=== PATIENT | female | born 1960 | race Caucasian/White ===

== ENCOUNTER 2020-01-19 11:47 | Outpatient (CLI) | payer OTHER, SELFPAY ==
--- NOTE | 2020-01-19 11:55 | MM_ITS ---
WS: [id number] BILATERAL DIGITAL SCREENING MAMMOGRAPHY WITH CAD CLINICAL INFORMATION: SCREENING HISTORY: Screening mammogram. No current complaints. COMPARISON: TECHNIQUE: Bilateral CC and MLO views. FINDINGS: Scattered fibroglandular densities bilaterally. No suspicious focal mass, asymmetry, calcifications, or architectural distortion. No evidence of malignancy. MM/[id number] IMPRESSION: BI-RADS: 1-Negative FOLLOW UP: 1 Year Follow-up Recommend return to annual screening mammography.
== END 2020-01-19 11:48 | disposition home or self-care (01) ==
LOC: RADSHAW 11:54
PROVIDERS: PCP Family Medicine; Visit Provider Family Medicine
DX: Z12.31 Encounter for screening mammogram for malignant neoplasm of breast (principal)
CPT/HCPCS: 77067

== ENCOUNTER → 2020-03-30 08:21 | Outpatient (BNVA) | payer OTHER, SELFPAY | PROVIDERS: PCP Family Medicine; Visit Provider Psychiatry & Neurology Psychiatry | DX: F33.1 Major depressive disorder, recurrent, moderate (principal); F41.1 Generalized anxiety disorder; F43.12 Post-traumatic stress disorder, chronic | CPT/HCPCS: 99213 ==

== ENCOUNTER → 2020-06-01 10:58 | Outpatient (BNVA) | payer OTHER, SELFPAY | PROVIDERS: PCP Family Medicine; Visit Provider Surgery | DX: Z01.812 Encounter for preprocedural laboratory examination (principal); Z20.828 Contact with and (suspected) exposure to other viral communicable diseases | CPT/HCPCS: 87635 ==

== ENCOUNTER 2020-06-06 06:31 | Day surgery (SDC) | payer OTHER, SELFPAY ==
[2020-06-04 11:55] VITALS: BMI 44.9
[2020-06-06 06:56] VITALS: BP 142/94; PULSE 108; RESP 18; TEMP 36.8; O2SAT 97
[2020-06-06] MEDS: sodium chloride 0.9% 1,000 ML 30 ML IV (07:06)
--- NOTE | 2020-06-06 07:26 | W.PM.OPSUD ---
Surgery/Procedure H&P Update DATE OF PROCEDURE: June 06, 2020 DATE H&P PERFORMED: 05/24/20 H&P UPDATE INFORMATION: I have reviewed H&P completed within last 30 days, I have examined patient prior to procedure and No changes to prior documentation PREOP DIAGNOSIS: bleeding per rectum PRIMARY INDICATION FOR PROCEDURE: The same PLANNED PROCEDURE: Operation Date: 06/06/20 07:30 Proposed Procedures p EGD [id number] R10.9 K92.1(Not Applicable) - Devonte Pollard MD s Colonoscopy(Not Applicable) - Devonte Pollard MD
--- NOTE | 2020-06-06 07:32 | ANES.PREANE2 ---
Pre-Anesthetic Assessment Pre-Anesthetic Assessment: Height/Weight: Height 1.75 m Weight 137.892 kg Temp Pulse Resp BP Pulse Ox 98.2 F 108 H 18 142/94 97 06/06/20 06:56 06/06/20 06:56 06/06/20 06:56 06/06/20 06:56 06/06/20 06:56 Preop Diagnosis: bleeding per rectum Proposed Procedure: Operation Date: 06/06/20 07:30 Proposed Procedures p EGD [id number] 12649 R10.9 K92.1(Not Applicable) - Devonte Pollard MD s Colonoscopy(Not Applicable) - Devonte Pollard MD Was Beta Clarence taken within 24 hours: N/A Last intake: Intake Last Liquid Date 06/05/20 Last Liquid Time 22:00 Last Solid Date 06/04/20 Last Solid Time 22:00 Social: Social History: No alcohol and No tobacco Exam: Pre-Anes Outpt Exam: alert, oriented x 3, clear to auscultation bilaterally and regular rate & rhythm Airway: Submandibular: WNL Cervical ROM: WNL MP: 2 Dentition: Other Additional comments: OK dentition, missing #25 Pulmonary: Pulmonary: None reported CV/HEM: CV/HEM: None reported : : None reported Hepatic: Hepatic: None reported GI: GI: GERD Metabolic: Metabolic: Morbid obesity Musc/skel: Musc/skel: None reported Neuropsych: Neuropsych: Anxiety and Depression Comments: PTSD Anesthetic Plan: ASA status: 3 Anesthesia: MAC Risk of > 500 ml blood loss (7ml/kg in children): No Meds/Allergies Current Medications: Current Medications Generic Name Dose Route Start Last Admin Trade Name Freq PRN Reason Stop Dose Admin Sodium Chloride 1,000 mls @ 30 ml s/hr 06/06/20 06:45 06/06/20 07:06 Sodium Chloride 0.9% IV 30 mls/hr .Q24H SHANICE Administration PFSH Anesthesia PFSH: Family History Denies family history of Anesthesia complication Bleeding disorder Social History Smoking and tobacco status: former smoker Quit status (tobacco): has quit using tobacco Year quit tobacco: 2001 Second hand smoke exposure: Yes (Sometimes) Smoking risk assessment/counseling performed?: Yes Tobacco counseling given: counseling >3 minutes Data Anesthesia Cardiac Studies: No Data to Display
[2020-06-06 08:02] VITALS: BP 130/87; PULSE 103; RESP 18; TEMP 36.2; O2SAT 94
[2020-06-06 08:23] VITALS: BP 136/81; PULSE 91; RESP 18; O2SAT 96
--- NOTE | 2020-06-06 13:49 | ANE.PACU2 ---
Inpatient post-anesthesia follow up: Airway intact: Yes Vital signs: Temperature 97.1 F Pulse Rate 91 Respiratory Rate 18 Blood Pressure 136/81 Pulse Oximetry 96 Oxygen Delivery Me thod Room Air Oxygen Flow Rate Fraction of Inspir ed Oxygen Hydration adequate: Yes Nausea and vomiting: Yes Pain level: 1 Mental status: Baseline
[2020-06-07 09:17] LABS: H. Pylori / CLO Test Negative
== END 2020-06-06 08:47 | disposition home or self-care (01) ==
PROVIDERS: PCP Family Medicine; Visit Provider Surgery
PROC: 0DJ08ZZ Inspection of Upper Intestinal Tract, Via Natural or Artificial Opening Endoscopic (ICD-10-PCS; CPT 43235; principal; 2020-06-06 07:30)
PROC: 0DJD8ZZ Inspection of Lower Intestinal Tract, Via Natural or Artificial Opening Endoscopic (ICD-10-PCS; CPT 45378; 2020-06-06 07:30)
DX: K92.1 Melena (principal); K21.9 Gastro-esophageal reflux disease without esophagitis; K29.70 Gastritis, unspecified, without bleeding; E66.01 Morbid (severe) obesity due to excess calories; Z68.41 Body mass index [BMI] 40.0-44.9, adult; Z87.891 Personal history of nicotine dependence
CPT/HCPCS: 12345; 43239; 45378; 87077; J7030

== ENCOUNTER → 2020-08-08 08:16 | Outpatient (BNVA) | payer OTHER, SELFPAY | PROVIDERS: PCP Family Medicine; Visit Provider Psychiatry & Neurology Psychiatry | DX: F33.1 Major depressive disorder, recurrent, moderate (principal); F41.1 Generalized anxiety disorder; F43.12 Post-traumatic stress disorder, chronic | CPT/HCPCS: 99213 ==

== ENCOUNTER 2023-09-03 10:55 | Outpatient (CLI) | payer OTHER, SELFPAY ==
--- NOTE | 2023-09-03 11:00 | MM_ITS ---
WS: [id number] VIEWS: MLO and CC views both breasts. 3D digital tomosynthesis is also included in this exam. Comparison made with prior exam of 04/05/2007, 09/01/2008, 11/28/2011, 12/17/2011, 09/19/2013, 09/28/2014, 09/01/2016, 06/02/2018, Findings: There was no sign of mass, architectural distortion or suspicious calcification in either breast. The re are scattered areas of fibroglandular density Impression: MM/[id number] BI-RADS: 1-Negative FOLLOW-UP: 1 Year Follow-up This mammogram was also analyzed by the Computer Aided Detection System R2 Imag e [employer].
== END 2023-09-03 10:56 | disposition home or self-care (01) ==
LOC: MOBLMAM 11:02
PROVIDERS: PCP Family Medicine; Visit Provider Family Medicine
DX: Z12.31 Encounter for screening mammogram for malignant neoplasm of breast (principal)
CPT/HCPCS: 77063; 77067

== ENCOUNTER 2024-04-01 11:58 | Emergency (ER) | payer OTHER, SELFPAY ==
[2024-04-01 12:05] VITALS: BP 163/126; PULSE 93; RESP 18; TEMP 36.7; O2SAT 97; BMI 42.7
--- NOTE | 2024-04-01 12:22 | CT_ITS ---
WS: [id number] CTA HEAD AND NECK TECHNIQUE: Contrast enhanced CTA of the head and neck with coronal and sagittal reformatted images an d maximum intensity projection (MIP) images. NASCET criteria utilized. CLINICAL INFORMATION: L eye blindness, R eye extremely blurry COMPARISON: None. DLP: 1146.[address] scans at [facility] use at least one of these dose optimization techniques: automated e xposure control; mA and/or kV adjustment per patient size (includes targeted exams where dose is matc hed to clinical indication); or iterative reconstruction. FINDINGS: No evidence of intracranial hemorrhage or mass effect. Ventricular system and basal cistern s are patent. Tiny chronic lacunar infarct RIGHT basal ganglia. Mild small vessel changes. Mild paren chymal volume loss. Mastoid air cells are well aerated. Mild mucosal thickening in the ethmoid air ce lls. Mucosal thickening in the maxillary sinuses and sphenoid sinus. RIGHT: RIGHT common carotid artery is patent. Moderate calcified atheromatous plaque RIGHT carotid bu lb extending into the ICA. RIGHT ICA stenosis measures approximately 50%. RIGHT ICA is patent to the skull base. Retropharyngeal course to the RIGHT cervical ICA. LEFT: LEFT common carotid artery is patent. Minimal atheromatous plaque LEFT carotid bulb extending i nto the ICA. No significant LEFT ICA stenosis. LEFT ICA is patent to the skull base. LEFT dominant vertebral artery. Tiny hypoplastic RIGHT vertebral artery. Somewhat diminutive but rabago nt basilar artery. Anterior dominant circulation. Persistent LEFT STORE FACILITY TECHNICIAN. Normal vascularity to th e STORE FACILITY TECHNICIAN territory bilaterally. Both ICAs are patent at the skull base. Mild cavernous carotid calcification. Patent anterior communi cating artery. Hypoplastic LEFT A1 segment. Normal vascularity to the LEOBARDO territory. Normal vasculari ty to the MCA territories bilaterally. No evidence of proximal flow-limiting stenosis. CT/CT angio headneck* [id number] IMPRESSION: 1. Approximately 50% RIGHT proximal ICA stenosis with moderate calcified ather omatous plaque. 2. No significant LEFT ICA stenosis. 3. LEFT dominant vertebral artery. 4. Anterior dominant intracranial circulation. No evidence of proximal flow-li miting stenosis. 5. Somewhat diminutive but patent basilar artery. Persistent LEFT STORE FACILITY TECHNICIAN. 6. Tiny chronic appearing lacunar infarct RIGHT basal ganglia Notified SEMAJ Crawford at 04/01/2024 2:19 PM.
--- NOTE | 2024-04-01 12:22 | W.ED.EYEPROB ---
Documented by User: SEMAJ Crawford 04/01/24 15:20 HPI - Eye Problem General: Chief complaint: Eye Problems Stated complaint: Neuro Symptoms - sent by eye doctor Time Seen by Provider: 04/01/24 12:15 Source: patient and family Mode of arrival: ambulatory Limitations: no limitations History of Present Illness: Patient is a 64-year-old female who presents to ED today at the request of Dr. [facility] for evaluation of visual changes. Patient states she has essentially went almost blind in her left eye starting about 3 days ago. She does still have sense of light but states she cannot see things almost directly in front of her face. She states her right eye now is starting to get blurry. She did have a dilated eye exam at Dr. Mitchell's office prior to arriving here. They were concerned for a central retinal artery occlusion. She has no eye pain. MD chief complaint: vision change Onset (ago): day(s) Onset description: gradual Duration: constant Location: both eyes Eye Symptoms: decreased vision and blurry vision Place: home Mechanism: none Severity: severe Associated symptoms: Reports no associated symptoms; Denies fever(s), headache(s), nausea, neck pain or vomiting Treatments Prior to Arrival: other (Dilated eye examination) Related Data Home Medications Medication Instructions Recorded Confirmed calcium polycarbophil 625 mg 1,250 mg PO DAILY 08/23/19 04/01/24 tablet (Fiber-Lax) atorvastatin 10 mg tablet (Lipitor) 10 mg PO DAILY 10/11/19 04/01/24 hydrocodone 10 mg-acetaminophen 1 tab PO Q8H PRN Pain 12/02/23 04/01/24 325 mg tablet cetirizine 10 mg tablet 10 mg PO DAILY 04/01/24 04/01/24 escitalopram oxalate 20 mg tablet 20 mg PO DAILY 04/01/24 04/01/24 estradiol 2 mg tablet 2 mg PO DAILY 04/01/24 04/01/24 clpvqhed-pix-pkjrb ac 400 1 tab PO DAILY 04/01/24 04/01/24 mcg-calcium carb 500 mg-vit K1 20 mcg tablet (Women's 50 Plus Multivitamin) multivitamin with minerals 1 tab PO DAILY 04/01/24 04/01/24 (Hair,Skin and Nails tablet) omeprazole magnesium 20 mg 40 mg PO BID PRN Acid Reflux 04/01/24 04/01/24 tablet,delayed release (Prilosec OTC) phentermine 37.5 mg tablet 37.5 mg PO QAM 04/01/24 04/01/24 semaglutide 2 mg/dose (8 mg/3 mL) 2 mg SUBCUT Q7D 04/01/24 04/01/24 subcutaneous pen injector (Ozempic) Previous Rx's Medication Instructions Recorded galcanezumab-gnlm 120 mg/mL 240 mg (2 mL) SUBCUT ONCE #2 mL 02/26/24 subcutaneous syringe (Emgality) amlodipine 5 mg tablet 5 mg PO DAILY #60 tabs 04/01/24 clopidogrel 75 mg tablet (Plavix) 75 mg PO DAILY #30 tabs 04/01/24 Allergies Allergy/AdvReac Type Severity Reaction Status Date / Time aspirin Allergy Severe nausea Verified 02/26/24 10:43 hydrocodone Allergy Severe nausea Verified 02/26/24 10:43 tramadol Allergy Severe hives Verified 02/26/24 10:43 acetaminophen [From Tylenol] Allergy ADR-Nausea Verified 02/26/24 10:43 ibuprofen Allergy ADR-Nausea Verified 02/26/24 10:43 Review of Systems Const: Denies: fever(s) Eyes: Reports: change in vision, blurry vision and blind spots; Denies: eye discomfort, eye discharge, eye redness, dry eyes, floaters or seeing flashes Card: Denies: chest pain, palpitations, syncope or pre-syncope Resp: Denies: dyspnea GI: Denies: nausea or vomiting Musc: Denies: neck pain Neuro: Reports: difficulty walking (secondary to the visual loss); Denies: headache(s), numbness in extremities, weakness in extremities, sensory changes, lack of coordination, frequent falls, dizziness, vertigo, confusion, behavioral changes, Slurred speech present, difficulty communicating thoughts, seizure-like activity, involuntary movements or restless legs PFSH ED PFSH: Medical History GERD (gastroesophageal reflux disease) Gastritis Bleeding per rectum Family History Denies family history of Anesthesia complication Bleeding disorder Social History Smoking and tobacco/nicotine status: never used tobacco/nicotine Quit status (tobacco/nicotine): has quit using Year quit tobacco: 2001 Second hand smoke exposure: Yes (Sometimes) Physical Exam Const: COMMON NORMALS: no acute distress, patient oriented x3, no limitations and alert GENERAL APPEARANCE: cooperative NUTRITIONAL APPEARANCE: obese morbidly obese (BMI 42.8) ORIENTATION/CONSCIOUSNESS: Yes awake, Yes oriented to person, Yes oriented to place and Yes oriented to time HENMT: COMMON NORMALS: normocephalic, atraumatic and hearing grossly normal bilaterally HEAD & SCALP: normal to inspection, normocephalic and atraumatic FACE & SINUS: normal facial exam and face symmetric Eye: COMMON NORMALS: EOMs intact bilaterally and conjunctivae normal VISUAL ACUITY: Yes complete vision loss PERIORBITAL: periorbital findings normal EYELID: eyelids normal CONJUNCTIVA: Yes conjunctivae normal SCLERA: sclerae normal CORNEA: Yes corneas normal OTHER: examination limited as bilateral pupils are dilated from dilated eye exam just performed at Dr. Mitchell' office; she cannot count fingers with her L eye-she can with R; visual acuity performed at Dr. Mitchell' office Neck/C-Spine: COMMON NORMALS: full ROM, no lymphadenopathy, no meningeal signs, no JVD and No carotid bruits GENERAL: Yes normal visual inspection Resp: COMMON NORMALS: normal respiratory effort and clear to auscultation bilaterally AUSCULTATION: clear to auscultation bilaterally Cardio: COMMON NORMALS: no JVD, regular rate and regular rhythm RATE: regular rate RHYTHM: regular rhythm Neuro: SHIRLENE COMA SCALE: document GCS findings [place] coma scale eye opening: Spontaneous [place] coma scale verbal response: Orientated [place] coma scale motor response: Obey commands [place] coma scale total score: 15 COMMON NORMALS: patient oriented x3, moves all extremities, no focal motor deficits and no sensory deficits noted SENSORIUM/ORIENTATION: Yes alert, Yes oriented to person, Yes oriented to place and Yes oriented to time MENINGEAL SIGNS: Yes no meningeal signs CRANIAL NERVES: Yes CN normal except as noted and Yes CN II (optic) visual field findings: Yes central vision loss visual acuity findings: Yes complete vision loss Course Vital Signs: Vital signs: Vital Signs Temperature 98.1 F 04/01/24 12:05 Pulse Rate 114 H 04/01/24 15:38 Respiratory Rate 18 04/01/24 12:05 Blood Pressure 126/90 04/01/24 15:38 Pulse Oximetry 98 04/01/24 15:38 Oxygen Delivery Me thod Room Air 04/01/24 12:05 MDM - Eye Problem Medical Decision Making Discussed CTA findings with Dr. oDuglass here in the ED along with Dr. Gilbert Mitchell. Dr. Douglass recommending Plavix/aspirin. Dr. Mitchell had concerns for hypertensive retinopathy as well. Blood pressures here were elevated upon arrival 150s/160s/90s and she did have a spike of over 200s systolic. Upon re-examination she is 126/90. She does not routinely check her blood pressures at home and does not take blood pressure medications. Will start her on antihypertensive medication. Dr. Mitchell will follow-up with her next week for any concerns. She will otherwise follow-up with her primary care provider as well. Medical Records I reviewed the patient's medical records. Lab Data I reviewed the patient's lab results. 04/01/24 12:37 04/01/24 12:37 Radiology Impressions Head/Neck CTA 04/01/24 12:22 IMPRESSION: 1. Approximately 50% RIGHT proximal ICA stenosis with moderate calcified atheromatous plaque. 2. No significant LEFT ICA stenosis. 3. LEFT dominant vertebral artery. 4. Anterior dominant intracranial circulation. No evidence of proximal flow-limiting stenosis. 5. Somewhat diminutive but patent basilar artery. Persistent LEFT REEL SLITTER. 6. Tiny chronic appearing lacunar infarct RIGHT basal ganglia Notified SEMAJ Crawford at 04/01/2024 2:19 PM. Laboratory Results WBC 9.90 10^3/uL (3.29-11.43) 04/01/24 12:37 RBC 4.72 10^6/uL (3.85-5.65) 04/01/24 12:37 Hgb 14.40 g/dL (11.27-16.99) 04/01/24 12:37 Hct 44.0 % (36-47) 04/01/24 12:37 MCV 93.2 fl (85-98) 04/01/24 12:37 MCH 30.5 pg (27-33) 04/01/24 12:37 MCHC 32.7 g/dL (30-55) 04/01/24 12:37 RDW 12.5 % (12.1-15.1) 04/01/24 12:37 Plt Count 252 10^3/cmm (157-399) 04/01/24 12:37 MPV 10.8 fL (7.4-10.4) H 04/01/24 12:37 Neut % (Auto) 49.8 % 04/01/24 12:37 Lymph % (Auto) 36.6 % 04/01/24 12:37 [place] % (Auto) 9.2 % 04/01/24 12:37 Eos % (Auto) 2.4 % 04/01/24 12:37 Baso % (Auto) 0.7 % 04/01/24 12:37 Neut # (Auto) 4.93 10^3/uL (1.8-7.7) 04/01/24 12:37 Lymph # (Auto) 3.6 10^3/uL (0.8-4.8) 04/01/24 12:37 [place] # (Auto) 0.9 10^3/uL (0.2-0.9) 04/01/24 12:37 Eos # (Auto) 0.2 10^3/uL (0.0-0.8) 04/01/24 12:37 Baso # (Auto) 0.1 10^3/uL (0.0-0.1) 04/01/24 12:37 Nucleated RBC % (auto) 0 % 04/01/24 12:37 Nucleated RBCs # 0.0 /100WBC 04/01/24 12:37 Sodium 136 mmol/L (136-145) 04/01/24 12:37 Potassium 4.3 mmol/L (3.5-5.1) 04/01/24 12:37 Chloride 101 mmol/L (98-107) 04/01/24 12:37 Carbon Dioxide 25 mmol/L (22-29) 04/01/24 12:37 Anion Gap 14.3 (5-19) 04/01/24 12:37 BUN 20 mg/dL (8-23) 04/01/24 12:37 Creatinine 0.7 mg/dL (0.5-0.9) 04/01/24 12:37 GFR Calculation 84.2 mL/min (90-130) L 04/01/24 12:37 Glucose 91 mg/dL (65-115) 04/01/24 12:37 Calculated Osmolality 284 mOsm/kg (285-295) L 04/01/24 12:37 Calcium 9.2 mg/dL (8.5-10.5) 04/01/24 12:37 Total Bilirubin 0.2 mg/dL (0.15-1.2) 04/01/24 12:37 AST 16 U/L (0-32) 04/01/24 12:37 ALT 14 U/L (0-33) 04/01/24 12:37 Alkaline Phosphatase 90 U/L (35-105) 04/01/24 12:37 Total Protein 6.9 g/dL (6.6-8.7) 04/01/24 12:37 Albumin 3.8 g/dL (3.5-5.2) 04/01/24 12:37 Globulin 3.1 g/dL (1.3-4.6) 04/01/24 12:37 All radiology interpretation(s) finalized by discharge Discharge Plan Discharge Patient Disposition: Home Clinical Impression: Bilateral moderate visual loss Condition: Stable Prescriptions: New Plavix 75 mg tablet 75 mg PO DAILY Qty: 30 0RF amlodipine 5 mg tablet 5 mg PO DAILY Qty: 60 0RF Rx Instructions: Start 5mg daily. May increase to 5mg BID after 1-2 weeks if blood pressure averaging > 140/90 No Action calcium polycarbophil [Fiber-Lax] 625 mg tablet 1,250 mg PO DAILY atorvastatin [Lipitor] 10 mg tablet 10 mg PO DAILY hydrocodone-acetaminophen 10-325 mg tablet 1 tab PO Q8H PRN (Reason: Pain) Emgality Syringe 120 mg/mL syringe 240 mg SUBCUT ONCE Qty: 2 0RF Rx Instructions: loading dose cetirizine 10 mg tablet 10 mg PO DAILY phentermine 37.5 mg tablet 37.5 mg PO QAM estradiol 2 mg tablet 2 mg PO DAILY Hair,Skin and Nails Tablet 1 tab PO DAILY escitalopram oxalate 20 mg tablet 20 mg PO DAILY Women's 50 Plus Multivitamin 400 mcg-500 mg calcium-20 mcg Tablet 1 tab PO DAILY Prilosec OTC 20 mg tablet,delayed release (DR/EC) 40 mg PO BID PRN (Reason: Acid Reflux) Ozempic 2 mg/dose (8 mg/3 mL) pen injector 2 mg SUBCUT Q7D Rx Instructions: Thursday Discharge Orders: Discharge ED (Routine); Ordered 04/01/24 Ordered By: Cris Price Referrals: Sherie Pacheco DO [Primary Care Provider] - Patient Instructions: Chronic Hypertension (DC), Hypertension (ED) Activity Restrictions/Additional Instructions: As we discussed, I am starting you on 2 new medications. The amlodipine will be started at 5 mg once daily. You may increase this to 5 mg twice daily after 1 to 2 weeks if blood pressures are still averaging greater than 140/90. In addition to the medications prescribed to you today, I would like you to start taking a baby aspirin daily. You may follow-up with Dr. Mitchell's eye clinic next week for any worsening vision. You also need to follow-up with your primary care provider in the meantime. You need to return to the emergency department for severe headache, any strokelike symptoms, severe abdominal pain or chest pain, or any other concerns you may have. Coding Level of Care Code ED Lead Dental Assistant for Chg Fwd Documented by User: Pop Douglass DO 04/01/24 15:42 HPI - Eye Problem General: Chief complaint: Eye Problems Stated complaint: Neuro Symptoms - sent by eye doctor Time Seen by Provider: 04/01/24 12:15 Related Data Home Medications Medication Instructions Recorded Confirmed calcium polycarbophil 625 mg 1,250 mg PO DAILY 08/23/19 04/01/24 tablet (Fiber-Lax) atorvastatin 10 mg tablet (Lipitor) 10 mg PO DAILY 10/11/19 04/01/24 hydrocodone 10 mg-acetaminophen 1 tab PO Q8H PRN Pain 12/02/23 04/01/24 325 mg tablet cetirizine 10 mg tablet 10 mg PO DAILY 04/01/24 04/01/24 escitalopram oxalate 20 mg tablet 20 mg PO DAILY 04/01/24 04/01/24 estradiol 2 mg tablet 2 mg PO DAILY 04/01/24 04/01/24 yiotearj-ttp-qzsqk ac 400 1 tab PO DAILY 04/01/24 04/01/24 mcg-calcium carb 500 mg-vit K1 20 mcg tablet (Women's 50 Plus Multivitamin) multivitamin with minerals 1 tab PO DAILY 04/01/24 04/01/24 (Hair,Skin and Nails tablet) omeprazole magnesium 20 mg 40 mg PO BID PRN Acid Reflux 04/01/24 04/01/24 tablet,delayed release (Prilosec OTC) phentermine 37.5 mg tablet 37.5 mg PO QAM 04/01/24 04/01/24 semaglutide 2 mg/dose (8 mg/3 mL) 2 mg SUBCUT Q7D 04/01/24 04/01/24 subcutaneous pen injector (Ozempic) Previous Rx's Medication Instructions Recorded galcanezumab-gnlm 120 mg/mL 240 mg (2 mL) SUBCUT ONCE #2 mL 02/26/24 subcutaneous syringe (Emgality) amlodipine 5 mg tablet 5 mg PO DAILY #60 tabs 04/01/24 clopidogrel 75 mg tablet (Plavix) 75 mg PO DAILY #30 tabs 04/01/24 Allergies Allergy/AdvReac Type Severity Reaction Status Date / Time aspirin Allergy Severe nausea Verified 02/26/24 10:43 hydrocodone Allergy Severe nausea Verified 02/26/24 10:43 tramadol Allergy Severe hives Verified 02/26/24 10:43 acetaminophen [From Tylenol] Allergy ADR-Nausea Verified 02/26/24 10:43 ibuprofen Allergy ADR-Nausea Verified 02/26/24 10:43 [facility] PFSH: Medical History GERD (gastroesophageal reflux disease) Gastritis Bleeding per rectum Family History Denies family history of Anesthesia complication Bleeding disorder Social History Smoking and tobacco/nicotine status: never used tobacco/nicotine Quit status (tobacco/nicotine): has quit using Year quit tobacco: 2001 Second hand smoke exposure: Yes (Sometimes) Physical Exam Neuro: SHIRLENE COMA SCALE: document GCS findings [place] coma scale total score: 15 Course Vital Signs: Vital signs: Vital Signs Temperature 98.1 F 04/01/24 12:05 Pulse Rate 114 H 04/01/24 15:38 Respiratory Rate 18 04/01/24 12:05 Blood Pressure 126/90 04/01/24 15:38 Pulse Oximetry 98 04/01/24 15:38 Oxygen Delivery Me thod Room Air 04/01/24 12:05 MDM - Eye Problem Medical Decision Making Discussed CTA findings with Dr. Douglass here in the ED along with Dr. Gilbert Mitchell. Dr. Douglass recommending Plavix/aspirin. Dr. Mitchell had concerns for hypertensive retinopathy as well. Blood pressures here were elevated upon arrival 150s/160s/90s and she did have a spike of over 200s systolic. Upon re-examination she is 126/90. She does not routinely check her blood pressures at home and does not take blood pressure medications. Will start her on antihypertensive medication. Dr. Mitchell will follow-up with her next week for any concerns. She will otherwise follow-up with her primary care provider as well. Chart reviewed and patient discussed with midlevel. Agree with assessment and plan. Lab Data 04/01/24 12:37 04/01/24 12:37 Radiology Impressions Head/Neck CTA 04/01/24 12:22 IMPRESSION: 1. Approximately 50% RIGHT proximal ICA stenosis with moderate calcified atheromatous plaque. 2. No significant LEFT ICA stenosis. 3. LEFT dominant vertebral artery. 4. Anterior dominant intracranial circulation. No evidence of proximal flow-limiting stenosis. 5. Somewhat diminutive but patent basilar artery. Persistent LEFT REEL SLITTER. 6. Tiny chronic appearing lacunar infarct RIGHT basal ganglia Notified SEMAJ Crawford at 04/01/2024 2:19 PM. Laboratory Results WBC 9.90 10^3/uL (3.29-11.43) 04/01/24 12:37 RBC 4.72 10^6/uL (3.85-5.65) 04/01/24 12:37 Hgb 14.40 g/dL (11.27-16.99) 04/01/24 12:37 Hct 44.0 % (36-47) 04/01/24 12:37 MCV 93.2 fl (85-98) 04/01/24 12:37 MCH 30.5 pg (27-33) 04/01/24 12:37 MCHC 32.7 g/dL (30-55) 04/01/24 12:37 RDW 12.5 % (12.1-15.1) 04/01/24 12:37 Plt Count 252 10^3/cmm (157-399) 04/01/24 12:37 MPV 10.8 fL (7.4-10.4) H 04/01/24 12:37 Neut % (Auto) 49.8 % 04/01/24 12:37 Lymph % (Auto) 36.6 % 04/01/24 12:37 [place] % (Auto) 9.2 % 04/01/24 12:37 Eos % (Auto) 2.4 % 04/01/24 12:37 Baso % (Auto) 0.7 % 04/01/24 12:37 Neut # (Auto) 4.93 10^3/uL (1.8-7.7) 04/01/24 12:37 Lymph # (Auto) 3.6 10^3/uL (0.8-4.8) 04/01/24 12:37 [place] # (Auto) 0.9 10^3/uL (0.2-0.9) 04/01/24 12:37 Eos # (Auto) 0.2 10^3/uL (0.0-0.8) 04/01/24 12:37 Baso # (Auto) 0.1 10^3/uL (0.0-0.1) 04/01/24 12:37 Nucleated RBC % (auto) 0 % 04/01/24 12:37 Nucleated RBCs # 0.0 /100WBC 04/01/24 12:37 Sodium 136 mmol/L (136-145) 04/01/24 12:37 Potassium 4.3 mmol/L (3.5-5.1) 04/01/24 12:37 Chloride 101 mmol/L (98-107) 04/01/24 12:37 Carbon Dioxide 25 mmol/L (22-29) 04/01/24 12:37 Anion Gap 14.3 (5-19) 04/01/24 12:37 BUN 20 mg/dL (8-23) 04/01/24 12:37 Creatinine 0.7 mg/dL (0.5-0.9) 04/01/24 12:37 GFR Calculation 84.2 mL/min (90-130) L 04/01/24 12:37 Glucose 91 mg/dL (65-115) 04/01/24 12:37 Calculated Osmolality 284 mOsm/kg (285-295) L 04/01/24 12:37 Calcium 9.2 mg/dL (8.5-10.5) 04/01/24 12:37 Total Bilirubin 0.2 mg/dL (0.15-1.2) 04/01/24 12:37 AST 16 U/L (0-32) 04/01/24 12:37 ALT 14 U/L (0-33) 04/01/24 12:37 Alkaline Phosphatase 90 U/L (35-105) 04/01/24 12:37 Total Protein 6.9 g/dL (6.6-8.7) 04/01/24 12:37 Albumin 3.8 g/dL (3.5-5.2) 04/01/24 12:37 Globulin 3.1 g/dL (1.3-4.6) 04/01/24 12:37 Discharge Plan Discharge Patient Disposition: Home Clinical Impression: Bilateral moderate visual loss Condition: Stable Prescriptions: New Plavix 75 mg tablet 75 mg PO DAILY Qty: 30 0RF amlodipine 5 mg tablet 5 mg PO DAILY Qty: 60 0RF Rx Instructions: Start 5mg daily. May increase to 5mg BID after 1-2 weeks if blood pressure averaging > 140/90 No Action calcium polycarbophil [Fiber-Lax] 625 mg tablet 1,250 mg PO DAILY atorvastatin [Lipitor] 10 mg tablet 10 mg PO DAILY hydrocodone-acetaminophen 10-325 mg tablet 1 tab PO Q8H PRN (Reason: Pain) Emgality Syringe 120 mg/mL syringe 240 mg SUBCUT ONCE Qty: 2 0RF Rx Instructions: loading dose cetirizine 10 mg tablet 10 mg PO DAILY phentermine 37.5 mg tablet 37.5 mg PO QAM estradiol 2 mg tablet 2 mg PO DAILY Hair,Skin and Nails Tablet 1 tab PO DAILY escitalopram oxalate 20 mg tablet 20 mg PO DAILY Women's 50 Plus Multivitamin 400 mcg-500 mg calcium-20 mcg Tablet 1 tab PO DAILY Prilosec OTC 20 mg tablet,delayed release (DR/EC) 40 mg PO BID PRN (Reason: Acid Reflux) Ozempic 2 mg/dose (8 mg/3 mL) pen injector 2 mg SUBCUT Q7D Rx Instructions: Thursday Discharge Orders: Discharge ED (Routine); Ordered 04/01/24 Ordered By: Cris Price Referrals: Sherie Pacheco DO [Primary Care Provider] - Patient Instructions: Chronic Hypertension (DC), Hypertension (ED) Activity Restrictions/Additional Instructions: As we discussed, I am starting you on 2 new medications. The amlodipine will be started at 5 mg once daily. You may increase this to 5 mg twice daily after 1 to 2 weeks if blood pressures are still averaging greater than 140/90. In addition to the medications prescribed to you today, I would like you to start taking a baby aspirin daily. You may follow-up with Dr. Mitchell's eye clinic next week for any worsening vision. You also need to follow-up with your primary care provider in the meantime. You need to return to the emergency department for severe headache, any strokelike symptoms, severe abdominal pain or chest pain, or any other concerns you may have. Coding Level of Care Code ED Lead Dental Assistant for Becca Tapia
[2024-04-01 12:40] VITALS: BP 154/96
--- NOTE | 2024-04-01 12:43 | ECG_ITS ---
[facility] Test Date: 2024-04-01 Pat Name: Candy Flanagan Department: Room: Gender: Female Associate Sales Manager: : 1960 Requested By: Cris Price Order Number: [id number] Maia MD: Delmis Farooq M.D. Measurements Intervals [place] Rate: 80 P: 47 [place]: 132 QRS: 43 QRSD: 82 T: 53 QT: 351 QTc: 407 Interpretive Statements SINUS RHYTHM LOW QRS VOLTAGE IN PRECORDIAL LEADS [QRS DEFLECTION < 1.0 mV IN CHEST LEADS] Compared to ECG 06/22/2019 12:00:43 Low QRS voltage now present Sinus tachycardia no longer present Electronically Signed On 04-01-2024 20:27:14 CDT by Delmis Farooq M.D. [id number]
[2024-04-01 12:45] LABS: Basophils # 0.1 10^3/uL (0.0-0.1); Basophils % 0.7 %; Eosinophils # 0.2 10^3/uL (0.0-0.8); Eosinophils % 2.4 %; Lymphocytes # 3.6 10^3/uL (0.8-4.8); Lymphocytes % 36.6 %; Mean Corpuscular HGB Conc 32.7 g/dL (30-55); Mean Corpuscular Hemoglobin 30.5 pg (27-33); Mean Corpuscular Volume 93.2 fl (85-98); Mean Platelet Volume 10.8 fL (7.4-10.4); Monocytes # 0.9 10^3/uL (0.2-0.9); Monocytes % 9.2 %; Neutrophils # 4.93 10^3/uL (1.8-7.7); Neutrophils % 49.8 %; Nucleated Red Blood Cells % 0 %; Platelet Count 252 10^3/cmm (157-399); Red Blood Count 4.72 10^6/uL (3.85-5.65); Red Cell Distribution Width 12.5 % (12.1-15.1)
[2024-04-01 13:05] LABS: Alanine Aminotransferase 14 U/L (0-33); Albumin Level 3.8 g/dL (3.5-5.2); Alkaline Phosphatase 90 U/L (35-105); Anion Gap 14.3 (5-19); Aspartate Amino Transferase 16 U/L (0-32); Blood Urea Nitrogen 20 mg/dL (8-23); Calcium 9.2 mg/dL (8.5-10.5); Carbon Dioxide 25 mmol/L (22-29); Chloride 101 mmol/L (98-107); Creatinine Clr Calc Pharmacy 110.8613; Globulin 3.1 g/dL (1.3-4.6); Glomerular Filtration Rate 84.2 mL/min (90-130); Glucose 91 mg/dL (65-115); Osmolality Calculated 284 mOsm/kg (285-295); Potassium 4.3 mmol/L (3.5-5.1); Sodium 136 mmol/L (136-145); Total Bilirubin 0.2 mg/dL (0.15-1.2); Total Protein 6.9 g/dL (6.6-8.7)
[2024-04-01 13:10] VITALS: BP 166/108; PULSE 80; O2SAT 93
[2024-04-01 13:40] VITALS: BP 159/90; PULSE 83; O2SAT 96
[2024-04-01] MEDS: iohexol 350 mg/mL 500 mL Btl (per mL) IV (13:41)
[2024-04-01 13:50] VITALS: BP 211/159; PULSE 84; O2SAT 95
[2024-04-01] MEDS: hyDRALAzine 20 mg/mL INJ 1 mL 10 MG IVP (14:08)
[2024-04-01 15:38] VITALS: BP 126/90; PULSE 114; O2SAT 98
== END 2024-04-01 15:39 | disposition home or self-care (01) ==
PROVIDERS: Emergency Provider Physician Assistant; PCP Family Medicine
DX: H54.3 Unqualified visual loss, both eyes (principal); Z79.85 Long-term (current) use of injectable non-insulin antidiabetic drugs; Z87.891 Personal history of nicotine dependence
CPT/HCPCS: 70496; 70498; 80053; 85025; 93005; 96374; 99285; J0360

== ENCOUNTER 2025-04-04 08:35 | Outpatient (CLI) | payer OTHER, SELFPAY ==
--- NOTE | 2025-04-04 08:46 | MM_ITS ---
WS: [id number] DIAGNOSTIC BILATERAL DIGITAL BREAST TOMOSYNTHESIS MAMMOGRAPHY WITH CAD RIGHT breast ultrasound, limited HISTORY: HX OF LUMP IN BREAST, palpable area corresponds to prior recent bruising. COMPARISON: 09/03/2023, 01/19/2020, 06/02/2018 TECHNIQUE: Bilateral craniocaudad, mediolateral oblique, and mediolateral views are submitted with tomosynthesis and SM. Computer aided detection utilized. Breast composition: There are scattered areas of fibroglandular density. Marker is placed along the medial inferior RIGHT breast at the area of the palpable abnormality/trauma. There is no skin thickening. No soft tissue mass or hematoma is identified. There are a few benign calcifications scattered within each breast. The mild asymmetric pattern is similar to prior studies. RIGHT breast ultrasound, limited. Ultrasound RIGHT breast 3:00, 5 cm from the nipple as directed by the patient. There is no soft tissue mass or distortion. No skin thickening. MM/MM diag BI tomosynthesis [id number] IMPRESSION: BI-RADS: 2 - Benign. FOLLOW UP: 1 Year Follow-up Return to annual screening mammography. No abnormality noted RIGHT breast in th e area of concern.
== END 2025-04-04 08:36 | disposition home or self-care (01) ==
PROVIDERS: PCP Family Medicine
DX: Z87.898 Personal history of other specified conditions (principal); N63.10 Unspecified lump in the right breast, unspecified quadrant; R92.1 Mammographic calcification found on diagnostic imaging of breast; N64.89 Other specified disorders of breast; R92.323 Mammographic fibroglandular density, bilateral breasts
CPT/HCPCS: 76642; 77062; G0279